=== PATIENT | female | born 1985 | race Caucasian/White ===

== ENCOUNTER 2024-07-17 15:09 | Emergency (ER) | payer SELFPAY ==
[2024-07-17 15:25] VITALS: BP 170/110; PULSE 130; O2SAT 98
[2024-07-17 15:26] VITALS: BP 167/115; PULSE 113; RESP 20; TEMP 36.8; O2SAT 98; BMI 21.0
--- NOTE | 2024-07-17 15:30 | ECG_ITS ---
Test Reason : tachycardia Blood Pressure : */* mmHG Vent. Rate : 116 BPM Atrial Rate : 116 BPM P-R Int : 166 ms QRS Dur : 78 ms QT Int : 336 ms P-R-T Axes : 63 55 83 degrees QTcB Int : 467 ms Sinus tachycardia Possible Left atrial enlargement Septal infarct , age undetermined Abnormal ECG No previous ECGs available Referred By: Vladislav Yuan Electronically Signed By: Mike Ford
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
[2024-07-17 16:01] LABS: MANUAL DIFF FLAG NO
[2024-07-17] MEDS: amLODIPine Besylate 10 MG TABLET PO (16:04)
[2024-07-17 16:06] LABS: Basophils Absolute Auto 0.1 X10*3/uL (0.0-0.2); Basophils Percent Auto 0.9 % (0-2); Hematocrit 45.1 % (37.0-47.0); Hemoglobin 15.9 g/dl (12.0-16.0); Imm Gran Abs Auto 0.02 X10*3/uL (0.00-0.03); Imm Gran Pct Auto 0.3 % (0.0-0.4); Lymphocytes Absolute Auto 1.3 X10*3/uL (1.2-4.9); Lymphocytes Percent Auto 18.6 % (20-40); Mean Corpuscular HGB Conc 35.3 g/dl (31.0-35.0); Mean Corpuscular Hemoglobin 30.9 pg (27.0-33.0); Mean Corpuscular Volume 87.7 fL (80.0-98.0); Mean Platelet Volume 8.7 fL (9.4-12.3); Monocytes Absolute Auto 0.4 X10*3/uL (0.1-1.2); Monocytes Percent Auto 5.4 % (2-11); Neutrophils Absolute Auto 5.2 x10*3/uL (2.0-8.3); Neutrophils Percent Auto 74.8 % (45-73); Platelet Count 360 X10*3/uL (160-400); Red Blood Count 5.14 X10*6/uL (4.20-5.50)
[2024-07-17 16:27] LABS: Alanine Aminotransferase 58 U/L (0-31); Albumin Level 4.4 g/dL (3.5-5.0); Alkaline Phosphatase 71 U/L (39-117); Anion Gap 14 (12-20); Aspartate Amino Transferase 36 U/L (5-31); Bilirubin Total 0.6 mg/dL (0.0-1.0); Blood Urea Nitrogen 9 mg/dL (9-16); Carbon Dioxide 25 mmol/L (22-29); Chloride 109 mmol/L (96-108); Creatinine Clr Calc Pharmacy 113.2; Estimated Glomerular Filt Rate > 60; Ethanol 302 mg/dL; Glucose Random 81 mg/dL (60-115); Sodium 144 mmol/L (135-145); Total Protein 7.5 g/dL (6.5-8.0)
--- NOTE | 2024-07-17 16:42 | PC.NURSE ---
patient requesting to leave. DR Yuan aware. states if patient has ride home she can leave. patient called for ride, awaiting for arrival
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
[2024-07-17 16:55] VITALS: BP 178/122; PULSE 134; RESP 20; TEMP 36.1; O2SAT 99
--- NOTE | 2024-07-17 16:55 | PC.NURSE ---
patient given dc papers, informed to follow up with pcp. ED provider aware of bp. patient ambulated off of unit with safe ride
[2024-07-17 17:11] LABS: HCG Quantitative < 2 mIU/mL; Troponin-I High Sensitivity < 2.7 ng/L (<3.5-17.0)
== END 2024-07-17 17:14 | disposition home or self-care (01) ==
LOC: HO.ED 16:56
PROVIDERS: Emergency Provider Emergency Medicine
DX: F10.920 Alcohol use, unspecified with intoxication, uncomplicated (principal); Y90.8 Blood alcohol level of 240 mg/100 ml or more; I10 Essential (primary) hypertension
CPT/HCPCS: 36415; 80053; 80307; 84484; 84702; 85025; 93005; 99283

== ENCOUNTER → 2024-07-17 15:30 | Outpatient (BNV) | payer SELFPAY | PROVIDERS: Emergency Provider Emergency Medicine; Visit Provider Internal Medicine Cardiovascular Disease | DX: R00.0 Tachycardia, unspecified (principal) | CPT/HCPCS: 93010 ==